=== PATIENT | female | born 1985 | race Caucasian/White ===

== ENCOUNTER 2025-09-29 00:10 | Inpatient (IN) ==
[2025-09-29] MEDS: OPTIRAY 320 100ml IV ONE (00:25)
[2025-09-29] MEDS: LORazepam 1 MG/1 ML SYR ED Inj Use ONE ×2 (00:29→01:55)
--- NOTE | 2025-09-29 00:34 | Emergency Department Note ---
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 Hydromorphone HCl (Hydromorphone Inj 0.5 Mg/0.5 Ml Syr) 0.5 mg IV NOW STA Stop: 09/29/25 05:08 Last Admin: 09/29/25 05:09 Dose: 0.5 mg Documented By: GAGANDEEP Sodium Chloride (Nss) 1,000 mls @ 999 mls/hr IV .Q1H1M ONE Stop: 09/29/25 01:22 Last Infusion: 09/29/25 02:45 Dose: Infused Documented By: Admin: 09/29/25 01:52 Dose: 999 mls/hr Documented By: GAGANDEEP Propofol (Diprivan) 1,000 mg in 100 mls @ 18.6 mls/hr IV .Q5H23M [facility]; Protocol Stop: 10/02/25 01:59 Last Titration: 09/29/25 11:53 Dose: Infused Documented By: nathen Titration: 09/29/25 09:52 Dose: Infused Documented By: nathen Co-signed By: BERNARD Admin: 09/29/25 09:52 Dose: 50 mcg/kg/min, 18.6 mls/hr Documented By: nathen Co-signed By: KATHRYNS Titration: 09/29/25 08:55 Dose: 50 mcg/kg/min, 18.6 mls/hr Documented By: Titration: 09/29/25 08:00 Dose: 45 mcg/kg/min, 16.7 mls/hr Documented By: Titration: 09/29/25 07:54 Dose: 40 mcg/kg/min, 14.9 mls/hr Documented By: Titration: 09/29/25 06:56 Dose: 35 mcg/kg/min, 13 mls/hr Documented By: SULAIMAN Co-signed By: WRS Titration: 09/29/25 06:02 Dose: 35 mcg/kg/min, 13 mls/hr Documented By: Admin: 09/29/25 05:08 Dose: 40 mcg/kg/min, 14.9 mls/hr Documented By: GAGANDEEP Co-signed By: CARMENCITA Titration: 09/29/25 05:08 Dose: Infused Documented By: GAGANDEEP Co-signed By: CARMENCITA Titration: 09/29/25 03:07 Dose: 40 mcg/kg/min, 14.9 mls/hr Documented By: Titration: 09/29/25 02:36 Dose: 30 mcg/kg/min, 11.2 mls/hr Documented By: Titration: 09/29/25 02:26 Dose: 35 mcg/kg/min, 13 mls/hr Documented By: Titration: 09/29/25 01:10 Dose: 40 mcg/kg/min, 14.9 mls/hr Documented By: Titration: 09/29/25 01:04 Dose: 20 mcg/kg/min, 7.4 mls/hr Documented By: Admin: 09/29/25 01:03 Dose: 5 mcg/kg/min, 1.9 mls/hr Documented By: GAGANDEEP Sodium Chloride (Nss) 1,000 mls @ 999 mls/hr IV .Q1H1M ONE Stop: 09/29/25 03:43 Last Infusion: 09/29/25 03:56 Dose: Infused Documented By: Admin: 09/29/25 02:45 Dose: 999 mls/hr Documented By: GAGANDEEP Thiamine HCl 100 mg/ Syringe 10 mls @ 2 mls/min IV NOW STA Stop: 09/29/25 04:16 Last Admin: 09/29/25 04:46 Dose: 2 mls/min Documented By: GAGANDEEP Phenobarbital Sodium 325 mg/ (Sodium Chloride) 52.5 mls @ 315 mls/hr IV ONE ONE Stop: 09/29/25 04:29 Last Infusion: 09/29/25 04:39 Dose: Infused Documented By: Admin: 09/29/25 04:26 Dose: 315 mls/hr Documented By: GAGANDEEP Potassium Chloride (K Dimitry / Wtr) 10 meq in 100 mls @ 100 mls/hr IV Q1H MARTHA Stop: 09/29/25 06:29 Last Infusion: 09/29/25 07:05 Dose: Infused Documented By: Admin: 09/29/25 05:35 Dose: 100 mls/hr Documented By: Infusion: 09/29/25 05:35 Dose: Infused Documented By: Admin: 09/29/25 04:35 Dose: 100 mls/hr Documented By: EJW Lactated Ringer's (Lr) 1,000 mls @ 100 mls/hr IV .Q10H MARTHA Stop: 09/29/25 23:17 Last Infusion: 09/29/25 11:51 Dose: Infused Documented By: dst Admin: 09/29/25 04:35 Dose: 150 mls/hr Documented By: EJW Folic Acid 1 mg/ Syringe 10 mls @ 5 mls/min IV NOW STA Stop: 09/29/25 04:34 Last Admin: 09/29/25 04:46 Dose: 5 mls/min Documented By: EJW Pantoprazole Sodium (Protonix) 40 mg in 10 mls @ 5 mls/min IV BID MARTHA Stop: 10/29/25 08:59 Last Admin: 09/29/25 08:24 Dose: 5 mls/min Documented By: dst Phenylephrine HCl (Phenylephrine/Nss) 25 mg in 250 mls @ 18.42 mls/hr IV .[id number] [facility]; Protocol Stop: 10/29/25 07:43 Last Titration: 09/29/25 11:53 Dose: Infused Documented By: dst Co-signed By: KIRIT Admin: 09/29/25 07:54 Dose: 0.5 mcg/kg/min, 18.4 mls/hr Documented By: WRS Co-signed By: dst Midazolam HCl (Versed) 125 mg in 250 mls @ 4 mls/hr IV .[id number] [facility]; Protocol Stop: 10/29/25 10:59 Last Titration: 09/29/25 11:52 Dose: Infused Documented By: dst Co-signed By: KIRIT Titration: 09/29/25 11:07 Dose: 2 mg/hr, 4 mls/hr Documented By: MTP Co-signed By: BERNARD Admin: 09/29/25 11:01 Dose: 1 mg/hr, 2 mls/hr Documented By: BERNARD Co-signed By: JAQUAN Fentanyl Citrate (Fentanyl Citrate) 2,500 mcg in 250 mls @ 2.5 mls/hr IV .Q96H [facility]; Protocol Stop: 10/13/25 10:59 Last Titration: 09/29/25 11:52 Dose: Infused Documented By: nathen Co-signed By: KIRIT Admin: 09/29/25 11:01 Dose: 25 mcg/hr, 2.5 mls/hr Documented By: BERNARD Co-signed By: JAQUAN Ioversol (Optiray 320 100ml) 94 ml IV ONCE ONE Stop: 09/29/25 00:25 Last Admin: 09/29/25 00:25 Dose: 94 ml Documented By: ROMI Lorazepam (Lorazepam 1 Mg/1 Ml Syr Ed Inj Use) Confirm Administered Dose 1 mg .ROUTE .STK-MED ONE Stop: 09/29/25 00:29 Last Admin: 09/29/25 00:29 Dose: 1 mg Documented By: GAGANDEEP Lorazepam (Lorazepam 1 Mg/1 Ml Syr Ed Inj Use) Confirm Administered Dose 2 mg .ROUTE .STK-MED ONE Stop: 09/29/25 00:45 Last Admin: 09/29/25 01:55 Dose: Not Given Documented By: GAGANDEEP Lorazepam (Lorazepam 1 Mg/1 Ml Syr Ed Inj Use) 2 mg IM ONE STA Stop: 09/29/25 00:45 Last Admin: 09/29/25 00:45 Dose: 2 mg Documented By: GAGANDEEP Midazolam HCl (Midazolam Hcl 1 Mg/Ml 2ml Vial) 2 mg IV NOW STA Stop: 09/29/25 10:48 Last Admin: 09/29/25 11:06 Dose: 2 mg Documented By: JAQUAN Midazolam HCl (Midazolam Hcl 1 Mg/Ml 2ml Vial) Confirm Administered Dose 2 mg .ROUTE .STK-MED ONE Stop: 09/29/25 10:51 Last Admin: 09/29/25 11:46 Dose: Not Given Documented By: nathen Midazolam HCl (Midazolam Hcl 125mg/250ml D5w) Confirm Administered Dose 125 mg IV .STK-MED ONE Stop: 09/29/25 10:53 Last Admin: 09/29/25 11:02 Dose: Not Given Documented By: BERNARD Miscellaneous (Rapid Sequence Induction Bag) Confirm Administered Dose 1 each N/A .STK-MED ONE Stop: 09/29/25 00:52 Last Admin: 09/29/25 06:06 Dose: Not Given Documented By: SULAIMAN Em (Stat Iv Infusion Titration Per Protocol) 1 each N/A NOW STA Stop: 09/29/25 01:57 Last Admin: 09/29/25 06:07 Dose: Not Given Documented By: SULAIMAN Em (Icu Protocol For Hyperglycemia) 1 each N/A ACHS MARTHA Stop: 10/01/25 07:29 Last Admin: 09/29/25 11:48 Dose: Not Given Documented By: dst Admin: 09/29/25 07:36 Dose: Not Given Documented By: nathen Phenobarbital Sodium (Phenobarbital Sodium 130 Mg/Ml Vial) 195 mg 3.6 mg/kg (195 mg) IM ONE ONE Stop: 09/29/25 07:29 Last Admin: 09/29/25 07:45 Dose: Not Given Documented By: BERNARD Propofol (Propofol Iv Emulsion 10 Mg/Ml 100 Ml Vial) Confirm Administered Dose 1,000 mg IV .STK-MED ONE Stop: 09/29/25 01:01 Last Admin: 09/29/25 02:04 Dose: Not Given Documented By: GAGANDEEP Propofol (Propofol Bolus From Bag) 20 mg IV Q5M PRN PRN Reason: Sedation Stop: 10/02/25 01:55 Last Admin: 09/29/25 10:25 Dose: 20 mg Documented By: DENNIS Co-signed By: KIRIT Admin: 09/29/25 10:20 Dose: 20 mg Documented By: DENNIS Co-signed By: KIRIT Admin: 09/29/25 09:33 Dose: 20 mg Documented By: nathen Co-signed By: BERNARD Admin: 09/29/25 08:02 Dose: 20 mg Documented By: BERNARD Co-signed By: nathen Admin: 09/29/25 07:50 Dose: 20 mg Documented By: BERNARD Co-signed By: nathen Rocuronium [place] (Rocuronium [place] 10 Mg/Ml 5 Ml Vial) 100 mg IV NOW STA Stop: 09/29/25 02:57 Last Admin: 09/29/25 02:59 Dose: 100 mg Documented By: GAGANDEEP Co-signed By: KMB Rocuronium [place] (Rocuronium [place] 10 Mg/Ml 5 Ml Vial) Confirm Administered Dose 100 mg IV .about.me ONE Stop: 09/29/25 02:58 Last Admin: 09/29/25 03:07 Dose: Not Given Documented By: GAGANDEEP Imaging Data Radiologist's Impression: Abdomen/Pelvis CT 09/29/25 00:21 EXAM: CT abd pelvis IV con only CLINICAL HISTORY: Trauma TECHNIQUE: CT of the abdomen and pelvis was performed with 94ml Optiray 320 IV contrast, with the following protocol: axial images with, and reconstructed coronal and sagittal images. One of the following dose reduction techniques was utilized for this exam: Automated exposure control, adjustment of the mA and/or kV according to patient size, and use of iterative reconstruction. COMPARISON: No prior studies available for comparison. FINDINGS: Abdomen: Liver: Normal in size, shape, and density. A few small hypodense foci are seen at the left hepatic lobe without appreciable enhancement, the largest is at segment II measuring 8mm, likely representing simple hepatic cysts. Hepatic vasculature and biliary ducts are unremarkable. Gallbladder and Biliary System: The gallbladder is normal in size and shape. Few gallbladder stones are seen, averaging 6mm in diameter. The common bile duct is normal in caliber without dilation. Pancreas: The pancreatic head, body, and tail are visualized and appear normal in size and density. No pancreatic masses or calcifications were noted. The pancreatic duct is not dilated. Spleen: Normal in size, shape, and density. A subtle hypodense focus is seen at the splenic parenchyma measuring 5mm, non-specific, probably a small hemangioma. Appendix: The appendix is normal in size without nadine-appendiceal fat stranding and without an appendicolith. No evidence of appendiceal abscess or perforation. Kidneys and Adrenal Glands: Both kidneys are normal in size, shape, and position. Cortical thickness is within normal limits. No renal calculi or hydronephrosis. Adrenal glands are unremarkable with no evidence of masses or hyperplasia. Pelvis: Urinary Bladder: Normal in contour and wall thickness. No intraluminal lesions identified. Uterus: Normal in size and contour. No masses or abnormal thickening. Ovaries: No gross abnormalities noted. A small calcific focus is seen related to the left adnexal region. Vagina: There is an oval-shaped density within the vaginal canal hosting air foci, suggesting a vaginal tampon. No surrounding inflammatory changes are identified. Clinical correlation is recommended. Peritoneal and retroperitoneal structures: No free fluid or abnormal fluid collections were identified within the abdomen or pelvis. No lymphadenopathy was noted. Bowel: The visualized bowel loops are normal in caliber and appearance. No evidence of bowel obstruction or wall thickening. A nasogastric tube is seen in place, the tip within the stomach. Bones and Soft Tissues: Mild degenerative changes of the thoracolumbar spine. Pelvic bones and soft tissues are unremarkable. No fractures or abnormal masses were identified. Basal chest scans: Bilateral mild pleural reaction is seen at the posterior pleural aspects of the lower lung lobes. Please review dedicated CT chest report. IMPRESSION: 1. No evidence of acute intra-abdominal pathology. 2. A few small hepatic cysts are identified. 3. A few gallbladder stones are seen. 4. A nasogastric tube is seen in place. Electronically signed by Emigdio Schmidt 09-29-2025 02:[address] 09/29/25 00:21 EXAM: CT cervical spine wo con CLINICAL HISTORY: Trauma. TECHNIQUE: CT scan of the cervical spine was performed without the administration of intravenous contrast. Contiguous axial images were obtained from the skull base to the upper thoracic spine. Coronal and sagittal reformatted images were also reviewed. One of the following dose reduction techniques was utilized for this exam. Automated exposure control, adjustment of the mA and/or kV according to patient size, and use of iterative reconstruction. COMPARISON: No previous studies are available for comparison. FINDINGS: Vertebrae: The vertebral bodies are normal in height and alignment. No evidence of acute fracture or dislocation. Straightening of the cervical spine noted possibly due to the muscle spasm The cortical and trabecular bone patterns are normal. No signs of lytic or sclerotic lesions. Normal configuration of the posterior elements. Small marginal osteophytic lipping of C3 down to C5 opposing vertebral endplates Small likely an annular calcification is seen opposite C4-C5 anterior vertebral disc space not to be mistaken as a fractured bony fragment Intervertebral Discs: The intervertebral disc spaces are preserved. C3-C4 posterior disc bulge is seen abutting the ventral aspect of the cord and encroaching on both neural exit pathways and exiting nerve roots C4-C5 and C5-C6 symmetric posterior disc bulges to the left side encroaching on the left neural exit foramina No calcifications or ossifications noted within the discs. Facet Joints: The facet joints are normal without evidence of dislocation, subluxation, or significant degenerative changes. Mild C3-C4 uncovertebral arthropathic changes Neural Foramina: The neural foramina are patent bilaterally at all levels. No evidence of foraminal narrowing or nerve root compression. Prevertebral Soft Tissues: The prevertebral soft tissues are normal in thickness without evidence of mass or abnormal fluid collection. Additional Findings: soft tissue edema/swelling in the parapharyngeal area, posterior part of the nasopharynx, needs clinical correlation and follow-up or dedicated exam if clinically warranted Part of the OG tube and the ETT tube are visible IMPRESSION: 1. No evidence of acute fracture or dislocation. 2. Straightening of the cervical spine noted possibly due to the muscle spasm 3. A small annular calcification is seen opposite C4-C5 anterior vertebral disc space 4. C3-4 posterior disc bulge encroaching on both neural exit pathways and exiting nerve rootsC4-5 and C5-6 symmetric posterior disc bulges to the left side encroaching on the left neural exit foramina 5. soft tissue edema/swelling in the parapharyngeal area, posterior part of the nasopharynx, needs clinical correlation and follow-up or dedicated exam if clinically warranted 6. Part of the OG tube and the ETT tube are visible Electronically signed by Emigdio Schmidt 09-29-2025 02:[address] 09/29/25 00:21 EXAM: CT chest diagnostic w con CLINICAL HISTORY: Trauma. TECHNIQUE: Contiguous 3.[address] images of the chest were acquired with administration of intravenous contrast. Coronal and sagittal reconstructions were obtained IV was administered for post contrast images. One of the following dose reduction techniques were utilized for this exam: Automated exposure control, adjustment of the mA and/or kV according to patient size, and use of iterative reconstruction. COMPARISON: Prior xary 11/30/2024. FINDINGS: Properly positioned ETT with its tip seen at 31 mm from jaime. Properly postioned NGT with its tip seen at stomach. Lungs: Mild bilateral emphysematous changes are more evident at both upper lobes Few groundglass opacities seen in left upper lobe. no evidence of consolidation, collapse, or focal lesions. Minimal bilateral pleural effusion. Mediastinum: The mediastinum appears unremarkable. No mediastinal mass. Hilar Structures: Normal size and configuration, no enlargement. Heart and Great Vessels: Normal heart size and configuration. No pericardial effusion. Normal caliber and course of the thoracic aorta and other great vessels. No significant atherosclerosis or aneurysm. Normal enhancement of the great vessels post-contrast. Pulmonary Arteries: No evidence of pulmonary embolism. Normal size and course of the pulmonary arteries. Esophagus: Normal course and caliber. No masses or dilatation. Bones: No fractures or lytic/sclerotic lesions. Normal bone density and alignment. No evidence of rib fractures. Chest Wall: No masses or soft tissue abnormalities. Upper Abdomen: Visualized portions of the liver, spleen, pancreas, adrenal glands, and kidneys are unremarkable left hepatic lobe two small simple cysts . Cholelithiasis. Thyroid: Normal size and morphology. No nodules or masses. IMPRESSION: 1. Properly positioned ETT with its tip seen at 31 mm from the jaime. 2. Properly postioned NGT with its tip seen at the stomach ( new ). 3. Few groundglass opacities seen in left upper lobe.Clinical and lab correlation is advised. 4. Mild bilateral emphysematous changes. 5. Minimal bilateral pleural effusion. 6. Cholelithiasis. 7. No evidence of rib fractures. Electronically signed by Emigdio Schmidt 09-29-2025 03:09 AM Chest X-Ray 09/29/25 00:21 EXAM: XR chest 1V portable CLINICAL HISTORY: Trauma TECHNIQUE: An X-ray image of the chest is obtained in AP projection. COMPARISON: No prior studies are available for comparison. FINDINGS: Pulmonary Parenchyma: Lungs are clear bilaterally. No evidence of consolidation, collapse, or focal opacities. No pulmonary nodules are identified. No evidence of pleural effusion or pleural thickening. Heart and Mediastinum: Heart size and shape are normal. No mediastinal widening or masses. No hilar or mediastinal lymphadenopathy. Bony Thorax: Bony thorax appears intact without fractures or deformities. Soft Tissues: Soft tissues overlying the chest wall are unremarkable. IMPRESSION: Normal chest X-ray. No acute cardiopulmonary abnormalities are identified. Electronically signed by Emigdio Schmidt 09-29-2025 01:[address] 09/29/25 00:21 EXAM: CT head/brain wo con CLINICAL HISTORY: trauma TECHNIQUE: Axial non-contrast CT scan of the brain was performed from the skull base to the high parietal region in axial, sagittal and coronal reconstructions. One of the following dose reduction techniques were utilized for this exam: Automated exposure control, adjustment of the mA and/or kV according to patient size, use of iterative reconstruction. COMPARISON: None. FINDINGS: Brain Parenchyma: Normal attenuation of the cerebral hemispheres, cerebellum, and brainstem. No evidence of acute infarct, hemorrhage, or mass effect. No abnormal areas of hypo- or hyperattenuation. Ventricular System: Ventricles are normal in size and configuration. No evidence of hydrocephalus or ventricular enlargement. Subarachnoid Spaces: Normal sulci and cisterns. No evidence of subarachnoid hemorrhage or extra-axial fluid collections. Cerebellum and Brainstem: No masses, lesions, or areas of abnormal density. Orbits: Normal appearance of the globes, optic nerves, and extraocular muscles. No evidence of orbital masses or abnormal density. Sinuses: Clear paranasal sinuses. No evidence of sinusitis or mucosal thickening. Mastoid Air Cells: Clear mastoid air cells. No evidence of mastoiditis. Skull: Normal skull morphology. Right frontal subgaleal focal thickening/possible hematoma measures 4 mm IMPRESSION: 1. Right frontal subgaleal focal thickening/possible hematoma measures 4 mm 2. Unremarkable unenhanced CT scan of the brain. No acute signs based on CT. If clinical symptoms persist, further evaluation with MRI may be considered as clinically warranted. Electronically signed by Emigdio Schmidt 09-29-2025 03:09 AM Pelvis X-Ray 09/29/25 00:21 EXAM: XR pelvis 1-2V routine CLINICAL HISTORY: Trauma TECHNIQUE: X-ray images of the pelvis were obtained in anteroposterior (AP) projection. COMPARISON: No prior studies available for comparison. FINDINGS: Bone Structure: Pelvic bones, including the iliac wings, ischium, pubis, and sacrum, are normal and intact. No evidence of fractures, dislocations, or significant osseous lesions. Hip Joints: Hip joints are normal with preserved joint spaces. No evidence of hip dislocation, subluxation, or significant degenerative changes. Early osteophytes noted. Acetabulum: Acetabular structures appear normal and intact. No signs of acetabular fracture or dysplasia. Symphysis Pubis: Symphysis pubis is normal and intact. No evidence of separation or widening. Sacroiliac Joints: Sacroiliac joints appear normal and unremarkable. No evidence of sacroiliitis or significant degenerative changes. Soft Tissues: Visualized soft tissues are normal and unremarkable. No soft tissue swelling, calcifications, or masses. lower abdominal and pelvic dense longitudinal structure, related to a procedure, please correlate clinically. IMPRESSION: No evidence of acute fractures, dislocations, or significant degenerative changes. Disclaimer: A subtle bone abnormality or fracture may not be readily apparent on X-rays, thus clinical correlation and further imaging including follow-up CT, MRI, or follow-up X-rays are advised as needed. Electronically signed by Emigdio Schmidt 09-29-2025 01:01 AM Chest X-Ray 09/29/25 01:00 EXAM: XR chest 1V portable CLINICAL HISTORY: intubated TECHNIQUE: Radiograph of chest was acquired. 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 The lungs are clear and well-expanded with no pulmonary infiltrate or pleural effusion. The cardiomediastinal silhouette is within normal limits. No acute osseous abnormality. IMPRESSION: 1. No acute cardiopulmonary disease. 2. Endotracheal tube insitu with its tip at a distance of 1.3cm from the jaime - Low in position. Advise repositioning. New finding. Electronically signed by Baudilio Hawk 09-29-2025 02:57 AM Discharge Plan Visit Data Chief Complaint: Trauma Stated Complaint: ETOH, MHE ED Provider: Jl Membreno Discharge Problem: Agitation, Alcohol intoxication, Combative behavior, Delirium, Contusion of forehead Patient Disposition: Admitted As Inpatient Condition: Serious Discharge Instructions Interventions: ED Discharge Assessment Last Done: 09/29/25 05:12 Discharge Problem: Alcohol intoxication Qualifiers: Complication of substance-induced condition: with delirium Qualified Code(s): F 10.921 - Alcohol use, unspecified with intoxication delirium Contusion of forehead Qualifiers: Encounter type: initial encounter Qualified Code(s): S00.83XA - Contusion of other part of head, initial encounter
[2025-09-29 00:45] LABS: Hematocrit (blood only) 44.1 % (37.0-47.0); Hemoglobin 15.4 g/dL (12.0-16.0); Immature Granulocytes # (auto) 0.03 K/uL (0.01-0.20); Immature Granulocytes % (auto) 0.3 %; Mean Corpuscular Hemoglobin 31.8 pg (25.0-34.0); Mean Corpuscular Volume 91.1 fL (80.0-100.0); Platelet Count 251 K/uL (130-400); RDW Standard Deviation 43.3 fL (36.4-46.3); Red Blood Count 4.84 M/uL (4.20-5.40); White Blood Count 11.24 K/ul (4.8-10.8)
[2025-09-29] MEDS: LORazepam 1 MG/1 ML SYR ED Inj Use IM STA (00:45)
[2025-09-29] MEDS: HALOPERIDOL LACTATE 5 MG/ML 1 ML VIAL IM STA (00:47)
--- NOTE | 2025-09-29 01:02 | XRay Report ---
EXAM: XR pelvis 1-2V routine CLINICAL HISTORY: Trauma TECHNIQUE: X-ray images of the pelvis were obtained in anteroposterior (AP) projection. COMPARISON: No prior studies available for comparison. FINDINGS: Bone Structure: Pelvic bones, including the iliac wings, ischium, pubis, and sacrum, are normal and intact. No evidence of fractures, dislocations, or significant osseous lesions. Hip Joints: Hip joints are normal with preserved joint spaces. No evidence of hip dislocation, subluxation, or significant degenerative changes. Early osteophytes noted. Acetabulum: Acetabular structures appear normal and intact. No signs of acetabular fracture or dysplasia. Symphysis Pubis: Symphysis pubis is normal and intact. No evidence of separation or widening. Sacroiliac Joints: Sacroiliac joints appear normal and unremarkable. No evidence of sacroiliitis or significant degenerative changes. Soft Tissues: Visualized soft tissues are normal and unremarkable. No soft tissue swelling, calcifications, or masses. lower abdominal and pelvic dense longitudinal structure, related to a procedure, please correlate clinically. IMPRESSION: No evidence of acute fractures, dislocations, or significant degenerative changes. Disclaimer: A subtle bone abnormality or fracture may not be readily apparent on X-rays, thus clinical correlation and further imaging including follow-up CT, MRI, or follow-up X-rays are advised as needed. Electronically signed by Emigdio Schmidt 09-29-2025 01:01 AM
[2025-09-29 01:04] LABS: Alanine Aminotransferase 43.0 U/L (7-52); Albumin Globulin Ratio 1.4 (0.9-2); Albumin Level 4.6 gm/dl (3.4-5.0); Alkaline Phosphatase 67.0 U/L (34-104); Anion Gap 9.0 (3-11); Bilirubin,Total 0.5 mg/dl (0.2-1.0); Blood Urea Nitrogen 13.0 mg/dl (6-23); Calcium 9.6 mg/dl (8.6-10.3); Carbon Dioxide 23.0 mmol/L (21-32); Chloride 109.0 mmol/L (98-107); Creatinine Clr Calc Pharmacy 86.4 ml/min; Globulin 3.2 gm/dl (2.5-4.0); Glucose 118.0 mg/dl (70-99(Fasting)); Lipase 50.0 U/L (11-82); Potassium 3.5 mmol/L (3.5-5.1); Sodium 141.0 mmol/L (136-145); Total Protein 7.8 gm/dl (6.0-8.3)
--- NOTE | 2025-09-29 01:05 | XRay Report ---
EXAM: XR chest 1V portable CLINICAL HISTORY: Trauma TECHNIQUE: An X-ray image of the chest is obtained in AP projection. COMPARISON: No prior studies are available for comparison. FINDINGS: Pulmonary Parenchyma: Lungs are clear bilaterally. No evidence of consolidation, collapse, or focal opacities. No pulmonary nodules are identified. No evidence of pleural effusion or pleural thickening. Heart and Mediastinum: Heart size and shape are normal. No mediastinal widening or masses. No hilar or mediastinal lymphadenopathy. Bony Thorax: Bony thorax appears intact without fractures or deformities. Soft Tissues: Soft tissues overlying the chest wall are unremarkable. IMPRESSION: Normal chest X-ray. No acute cardiopulmonary abnormalities are identified. Electronically signed by Emigdio Schmidt 09-29-2025 01:05 AM
[2025-09-29 01:30] LABS: INR 0.9 (0.9-1.1); Partial Thromboplastin Time 26 Seconds (21-31); Prothrombin Time 9.8 Seconds (9.0-12.0)
[2025-09-29] MEDS: HYDROmorphone INJ 1 MG/ML SYRINGE IV STA (01:52)
[2025-09-29] MEDS: SODIUM CHLORIDE 0.9% 1,000 ML IV ONE ×2 (01:52→02:45)
[2025-09-29 02:01] LABS: Appearance Urine Clear (Clear); Bacteria Urine Automated None Seen (None Seen); Cast Urine Automated 0-2 /lpf (0-2); Epithelial Cell Urine Auto 0-2 /hpf (0-2); Glucose Urine UA Negative (Negative); RBC Urine Automated 0-2 /hpf (0-2); WBC Urine Automated 0-5 /hpf (0-5)
[2025-09-29] MEDS: PROPOFOL IV EMULSION 10 MG/ML 100 ML VIAL IV ONE (02:04)
[2025-09-29 02:28] LABS: Amphetamines+Metham, Urine Neg (Neg); MDMA (Ecstacy), Urine Neg (Neg); Marijuana, Urine Pos (Neg)
--- NOTE | 2025-09-29 02:58 | CT Scan Report ---
EXAM: CT cervical spine wo con CLINICAL HISTORY: Trauma. TECHNIQUE: CT scan of the cervical spine was performed without the administration of intravenous contrast. Contiguous axial images were obtained from the skull base to the upper thoracic spine. Coronal and sagittal reformatted images were also reviewed. One of the following dose reduction techniques was utilized for this exam. Automated exposure control, adjustment of the mA and/or kV according to patient size, and use of iterative reconstruction. COMPARISON: No previous studies are available for comparison. FINDINGS: Vertebrae: The vertebral bodies are normal in height and alignment. No evidence of acute fracture or dislocation. Straightening of the cervical spine noted possibly due to the muscle spasm The cortical and trabecular bone patterns are normal. No signs of lytic or sclerotic lesions. Normal configuration of the posterior elements. Small marginal osteophytic lipping of C3 down to C5 opposing vertebral endplates Small likely an annular calcification is seen opposite C4-C5 anterior vertebral disc space not to be mistaken as a fractured bony fragment Intervertebral Discs: The intervertebral disc spaces are preserved. C3-C4 posterior disc bulge is seen abutting the ventral aspect of the cord and encroaching on both neural exit pathways and exiting nerve roots C4-C5 and C5-C6 symmetric posterior disc bulges to the left side encroaching on the left neural exit foramina No calcifications or ossifications noted within the discs. Facet Joints: The facet joints are normal without evidence of dislocation, subluxation, or significant degenerative changes. Mild C3-C4 uncovertebral arthropathic changes Neural Foramina: The neural foramina are patent bilaterally at all levels. No evidence of foraminal narrowing or nerve root compression. Prevertebral Soft Tissues: The prevertebral soft tissues are normal in thickness without evidence of mass or abnormal fluid collection. Additional Findings: soft tissue edema/swelling in the parapharyngeal area, posterior part of the nasopharynx, needs clinical correlation and follow-up or dedicated exam if clinically warranted Part of the OG tube and the ETT tube are visible IMPRESSION: 1. No evidence of acute fracture or dislocation. 2. Straightening of the cervical spine noted possibly due to the muscle spasm 3. A small annular calcification is seen opposite C4-C5 anterior vertebral disc space 4. C3-4 posterior disc bulge encroaching on both neural exit pathways and exiting nerve rootsC4-5 and C5-6 symmetric posterior disc bulges to the left side encroaching on the left neural exit foramina 5. soft tissue edema/swelling in the parapharyngeal area, posterior part of the nasopharynx, needs clinical correlation and follow-up or dedicated exam if clinically warranted 6. Part of the OG tube and the ETT tube are visible Electronically signed by Emigdio Schmidt 09-29-2025 02:58 AM
--- NOTE | 2025-09-29 02:58 | XRay Report ---
EXAM: XR chest 1V portable CLINICAL HISTORY: intubated TECHNIQUE: Radiograph of chest was acquired. COMPARISON: 09/28/2025 23:23:39 [employer] FINDINGS: Endotracheal tube is seen insitu with its tip at a distance of 1.3cm from the jaime. The lungs are clear and well-expanded with no pulmonary infiltrate or pleural effusion. The cardiomediastinal silhouette is within normal limits. No acute osseous abnormality. IMPRESSION: 1. No acute cardiopulmonary disease. 2. Endotracheal tube insitu with its tip at a distance of 1.3cm from the jaime - Low in position. Advise repositioning. New finding. Electronically signed by Baudilio Hawk 09-29-2025 02:57 AM
[2025-09-29] MEDS: ROCURONIUM BROMIDE 10 MG/ML 5 ML VIAL IV STA (02:59)
[2025-09-29] MEDS: HYDROmorphone INJ 0.5 MG/0.5 ML SYR ONE (02:59)
--- NOTE | 2025-09-29 03:00 | CT Scan Report ---
EXAM: CT abd pelvis IV con only CLINICAL HISTORY: Trauma TECHNIQUE: CT of the abdomen and pelvis was performed with 94ml Optiray 320 IV contrast, with the following protocol: axial images with, and reconstructed coronal and sagittal images. One of the following dose reduction techniques was utilized for this exam: Automated exposure control, adjustment of the mA and/or kV according to patient size, and use of iterative reconstruction. COMPARISON: No prior studies available for comparison. FINDINGS: Abdomen: Liver: Normal in size, shape, and density. A few small hypodense foci are seen at the left hepatic lobe without appreciable enhancement, the largest is at segment II measuring 8mm, likely representing simple hepatic cysts. Hepatic vasculature and biliary ducts are unremarkable. Gallbladder and Biliary System: The gallbladder is normal in size and shape. Few gallbladder stones are seen, averaging 6mm in diameter. The common bile duct is normal in caliber without dilation. Pancreas: The pancreatic head, body, and tail are visualized and appear normal in size and density. No pancreatic masses or calcifications were noted. The pancreatic duct is not dilated. Spleen: Normal in size, shape, and density. A subtle hypodense focus is seen at the splenic parenchyma measuring 5mm, non-specific, probably a small hemangioma. Appendix: The appendix is normal in size without nadine-appendiceal fat stranding and without an appendicolith. No evidence of appendiceal abscess or perforation. Kidneys and Adrenal Glands: Both kidneys are normal in size, shape, and position. Cortical thickness is within normal limits. No renal calculi or hydronephrosis. Adrenal glands are unremarkable with no evidence of masses or hyperplasia. Pelvis: Urinary Bladder: Normal in contour and wall thickness. No intraluminal lesions identified. Uterus: Normal in size and contour. No masses or abnormal thickening. Ovaries: No gross abnormalities noted. A small calcific focus is seen related to the left adnexal region. Vagina: There is an oval-shaped density within the vaginal canal hosting air foci, suggesting a vaginal tampon. No surrounding inflammatory changes are identified. Clinical correlation is recommended. Peritoneal and retroperitoneal structures: No free fluid or abnormal fluid collections were identified within the abdomen or pelvis. No lymphadenopathy was noted. Bowel: The visualized bowel loops are normal in caliber and appearance. No evidence of bowel obstruction or wall thickening. A nasogastric tube is seen in place, the tip within the stomach. Bones and Soft Tissues: Mild degenerative changes of the thoracolumbar spine. Pelvic bones and soft tissues are unremarkable. No fractures or abnormal masses were identified. Basal chest scans: Bilateral mild pleural reaction is seen at the posterior pleural aspects of the lower lung lobes. Please review dedicated CT chest report. IMPRESSION: 1. No evidence of acute intra-abdominal pathology. 2. A few small hepatic cysts are identified. 3. A few gallbladder stones are seen. 4. A nasogastric tube is seen in place. Electronically signed by Emigdio Schmidt 09-29-2025 02:59 AM
[2025-09-29] MEDS: ROCURONIUM BROMIDE 10 MG/ML 5 ML VIAL IV ONE (03:07)
--- NOTE | 2025-09-29 03:10 | CT Scan Report ---
EXAM: CT chest diagnostic w con CLINICAL HISTORY: Trauma. TECHNIQUE: Contiguous 3.[address] images of the chest were acquired with administration of intravenous contrast. Coronal and sagittal reconstructions were obtained IV was administered for post contrast images. One of the following dose reduction techniques were utilized for this exam: Automated exposure control, adjustment of the mA and/or kV according to patient size, and use of iterative reconstruction. COMPARISON: Prior xary 11/30/2024. FINDINGS: Properly positioned ETT with its tip seen at 31 mm from jaime. Properly postioned NGT with its tip seen at stomach. Lungs: Mild bilateral emphysematous changes are more evident at both upper lobes Few groundglass opacities seen in left upper lobe. no evidence of consolidation, collapse, or focal lesions. Minimal bilateral pleural effusion. Mediastinum: The mediastinum appears unremarkable. No mediastinal mass. Hilar Structures: Normal size and configuration, no enlargement. Heart and Great Vessels: Normal heart size and configuration. No pericardial effusion. Normal caliber and course of the thoracic aorta and other great vessels. No significant atherosclerosis or aneurysm. Normal enhancement of the great vessels post-contrast. Pulmonary Arteries: No evidence of pulmonary embolism. Normal size and course of the pulmonary arteries. Esophagus: Normal course and caliber. No masses or dilatation. Bones: No fractures or lytic/sclerotic lesions. Normal bone density and alignment. No evidence of rib fractures. Chest Wall: No masses or soft tissue abnormalities. Upper Abdomen: Visualized portions of the liver, spleen, pancreas, adrenal glands, and kidneys are unremarkable left hepatic lobe two small simple cysts . Cholelithiasis. Thyroid: Normal size and morphology. No nodules or masses. IMPRESSION: 1. Properly positioned ETT with its tip seen at 31 mm from the jaime. 2. Properly postioned NGT with its tip seen at the stomach ( new ). 3. Few groundglass opacities seen in left upper lobe.Clinical and lab correlation is advised. 4. Mild bilateral emphysematous changes. 5. Minimal bilateral pleural effusion. 6. Cholelithiasis. 7. No evidence of rib fractures. Electronically signed by Emigdio Schmidt 09-29-2025 03:09 AM
--- NOTE | 2025-09-29 03:10 | CT Scan Report ---
EXAM: CT head/brain wo con CLINICAL HISTORY: trauma TECHNIQUE: Axial non-contrast CT scan of the brain was performed from the skull base to the high parietal region in axial, sagittal and coronal reconstructions. One of the following dose reduction techniques were utilized for this exam: Automated exposure control, adjustment of the mA and/or kV according to patient size, use of iterative reconstruction. COMPARISON: None. FINDINGS: Brain Parenchyma: Normal attenuation of the cerebral hemispheres, cerebellum, and brainstem. No evidence of acute infarct, hemorrhage, or mass effect. No abnormal areas of hypo- or hyperattenuation. Ventricular System: Ventricles are normal in size and configuration. No evidence of hydrocephalus or ventricular enlargement. Subarachnoid Spaces: Normal sulci and cisterns. No evidence of subarachnoid hemorrhage or extra-axial fluid collections. Cerebellum and Brainstem: No masses, lesions, or areas of abnormal density. Orbits: Normal appearance of the globes, optic nerves, and extraocular muscles. No evidence of orbital masses or abnormal density. Sinuses: Clear paranasal sinuses. No evidence of sinusitis or mucosal thickening. Mastoid Air Cells: Clear mastoid air cells. No evidence of mastoiditis. Skull: Normal skull morphology. Right frontal subgaleal focal thickening/possible hematoma measures 4 mm IMPRESSION: 1. Right frontal subgaleal focal thickening/possible hematoma measures 4 mm 2. Unremarkable unenhanced CT scan of the brain. No acute signs based on CT. If clinical symptoms persist, further evaluation with MRI may be considered as clinically warranted. Electronically signed by Emigdio Schmidt 09-29-2025 03:09 AM
[2025-09-29] MEDS ORDERED: STAT IV/IM STA (04:13)
[2025-09-29] MEDS: POTASSIUM CHLORIDE / WTR 10 MEQ/100 ML PLCT IV SCH (04:35)
[2025-09-29] MEDS: LACTATED RINGER'S 1,000 ML IV SCH (04:35)
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
[2025-09-29] MEDS: THIAMINE HCL 100 MG in SYRINGE 9 ML IV STA (04:46)
[2025-09-29] MEDS: FOLIC ACID 1 MG in SYRINGE 9.8 ML IV STA (04:46)
[2025-09-29] MEDS: HYDROmorphone INJ 0.5 MG/0.5 ML SYR IV STA (05:09)
--- NOTE | 2025-09-29 05:41 | Billing Data ---
Date of Service September 29, 2025 Coding Level of Care Code 22461 CRITICAL CARE
[2025-09-29] MEDS ORDERED: ONDANSETRON INJ 2 MG/ML 2 ML VIAL IV PRN (05:56)
[2025-09-29] MEDS ORDERED: ALBUT/IPRATROP 3MG/0.5MG NEB 3 ML VIAL NEB PRN (05:56)
[2025-09-29] MEDS: RAPID SEQUENCE INDUCTION BAG ONE (06:06)
[2025-09-29] MEDS: STAT IV Infusion **Titration per Protocol STA (06:07)
[2025-09-29 06:11] LABS: Base Excess VBG -4.8 mEq/L; HCO3 VBG 21 mmol/L; Oxygen Saturation VBG 87.1 %; PCO2 VBG 41 mmHg (38-50); PO2 VBG 55 mmHg; pH VBG 7.32 (7.36-7.41)
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
[2025-09-29 07:15] LABS: Magnesium 2.5 mg/dl (1.7-2.4)
[2025-09-29 07:21] LABS: Creatine Kinase 115.0 U/L (26-192); Hemoglobin A1C 4.9 % (4.5-5.6)
[2025-09-29] MEDS ORDERED: STAT IV Infusion **Titration per Protocol STA ×2 (07:43→10:48)
[2025-09-29] MEDS: PROPOFOL BOLUS FROM BAG IV PRN (07:50)
[2025-09-29] MEDS: PHENYLEPHRINE/NSS 25 MG/250 ML BAG IV SCH (07:54)
[2025-09-29] MEDS: HEPARIN SOD 5,000 UNIT/0.5 ML VIAL SQ SCH (08:24)
[2025-09-29] MEDS: PANTOprazole 40 MG/10 ML SYR IV SCH (08:24)
--- NOTE | 2025-09-29 10:46 | CT Scan Report ---
HISTORY: Trauma with head injury. TECHNIQUE: CT of the head without contrast. Images are presented in axial, sagittal, and coronal reformats. COMPARISON: Head CT dated 09/29/2025 acquired at 3:09 AM FINDINGS: No evidence of intracranial hemorrhage, abnormal extra axial fluid collection, mass effect, or midline shift.Ventricular caliber is appropriate. Fourth ventricle is midline. Basal cisterns are patent.Riley-white differentiation is maintained.Partially imaged configuration of the sella. Globes and orbits are unremarkable. Right frontal scalp soft tissue swelling.Partially imaged endotracheal and enteric tubes. Paranasal sinuses and mastoid air cells are clear. No calvarial fracture. IMPRESSION: 1. No acute intracranial findings. 2. Mild right frontal scalp edema. Electronically signed by Moises Norton 09-29-2025 10:46 AM
[2025-09-29] MEDS ORDERED: MIDAZOLAM BOLUS FROM BAG IV PRN (10:48)
[2025-09-29] MEDS: MIDAZOLAM HCL 125 MG/250 ML BAG IV SCH (11:01)
[2025-09-29] MEDS: fentaNYL citrate 2,500 MCG/250 ML BAG IV SCH (11:01)
[2025-09-29] MEDS: MIDAZOLAM HCL 125MG/250ML D5W IV ONE (11:02)
[2025-09-29] MEDS ORDERED: MIDAZOLAM HCL 1 MG/ML 2ML VIAL IV STA (11:02)
[2025-09-29] MEDS: fentaNYL citrate 2,500 MCG/250 ML BAG IV ONE (11:02)
[2025-09-29] MEDS: MIDAZOLAM HCL 1 MG/ML 2ML VIAL IV STA (11:06)
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
[2025-09-29] MEDS: MIDAZOLAM HCL 1 MG/ML 2ML VIAL ONE (11:46)
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
--- NOTE | 2025-09-29 14:24 | XCELERA ---
[id number]
--- NOTE | 2025-09-30 05:58 | Electrocardiogram Report ---
Test Reason : Blood Pressure : */* mmHG Vent. Rate : 83 BPM Atrial Rate : 83 BPM P-R Int : 110 ms QRS Dur : 76 ms QT Int : 396 ms P-R-T Axes : 25 80 69 degrees QTcB Int : 465 ms Sinus rhythm with short DE Otherwise normal ECG No previous ECGs available Confirmed by Vinny Miller ([id number]) on 09/30/2025 5:58:14 AM Referred By: REFERRED SELF Confirmed By: Vinny Miller
[2025-09-30] MEDS ORDERED: FOLIC ACID 1 MG in SYRINGE 9.8 ML IV SCH (09:00)
[2025-09-30] MEDS ORDERED: THIAMINE HCL 100 MG in SYRINGE 9 ML IV SCH (09:00)
== END 2025-09-29 12:10 | disposition short-term general hospital (02) | DRG 896 ==
LOC: ED 00:10 → SUATTDRO 04:41 → 1E 04:41